=== PATIENT | male | born 1990 | race African-American/Black ===

== ENCOUNTER 2019-07-18 09:14 | Emergency (ER) | payer SELFPAY ==
[2019-07-18] MEDS ORDERED: IBUPROFEN 800 MG TABLET PO ONE (10:54)
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
--- NOTE | 2019-07-18 12:26 | RADIOLOGY REPORT (SQ) ---
EXAM DESCRIPTION: HAND LEFT 3 VIEWS COMPLETED DATE/TIME: 07/18/2019 12:16 pm REASON FOR STUDY: punched a wall pain swelling COMPARISON: None. EXAM PARAMETERS: NUMBER OF VIEWS: Three views. TECHNIQUE: AP, lateral and oblique radiographic images acquired of the left hand. LIMITATIONS: None. FINDINGS: MINERALIZATION: Normal. BONES: No acute fracture or dislocation. No worrisome bone lesions. JOINTS: No effusions. SOFT TISSUES: Dorsal hand soft tissue swelling. OTHER: No other significant finding. IMPRESSION: Dorsal hand soft tissue swelling. No acute osseous abnormality. TECHNICAL DOCUMENTATION: JOB ID: [id number] [employer]- All Rights Reserved Reading location - IP/workstation name: [email or web address]
[2019-07-18 12:42] VITALS: BP 133/81
== END 2019-07-18 12:42 | disposition home or self-care (01) ==
LOC: ER 09:14
DX: M79.642 Pain in left hand (principal); W22.09XA Striking against other stationary object, initial encounter
CPT/HCPCS: 99283

== ENCOUNTER 2019-12-23 14:28 | Emergency (ER) | payer SELFPAY ==
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
[2019-12-23] MEDS ORDERED: HYDROCODONE/ACETAMINOPHEN 5-325 MG TABLET PO ONE (14:55)
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
--- NOTE | 2019-12-23 15:20 | RADIOLOGY REPORT (SQ) ---
EXAM DESCRIPTION: CT HEAD WITHOUT IMAGES COMPLETED DATE/TIME: 12/23/2019 2:54 pm REASON FOR STUDY: head injury with loss of conciousness COMPARISON: None. TECHNIQUE: Axial images acquired through the brain without intravenous contrast. Images reviewed wi th bone, brain and subdural windows. Additional sagittal and coronal reconstructions were generated. Images stored on PACS. All CT scanners at this facility use dose modulation, iterative reconstruction, and/or weight based d osing when appropriate to reduce radiation dose to as low as reasonably achievable (ALARA). [facility]: Dose Right [facility]: CareDose [facility]: Dose Right [facility]: Teradose 4D [facility]: YOHO RADIATION DOSE: CT Rad equipment meets quality standard of care and radiation dose reduction techniq ues were employed. CTDIvol: 53.2 mGy. DLP: 1017 mGy-cm. LIMITATIONS: None. FINDINGS: Hemorrhagic contusion in the left paramedian frontal lobe (image 23 of series 2) that prieto ures 2.4 x 1.5 cm associated with effacement of the cerebral sulci and loss of the ramos-white matter differentiation. There is no extra-axial fluid collection, vascular territorial infarct, mass effect or midline shift. The caliber of the ventricles is concordant with the degree of sulcation. There is no effacement of the basal subarachnoid cisterns The orbits and globes are intact. The paranasal sinuses are clear. There is no calvarial fracture. IMPRESSION: Hemorrhagic contusion in the left paramedian frontal lobe (image 23 of series 2) that me asures 2.4 x 1.5 cm. EVIDENCE OF ACUTE STROKE: NO. COMMENT: This report was called to MARY BEDOYA NP at15:14 on 12/23/2019. Quality ID # [id number]: Final reports with documentation of one or more dose reduction techniques (e.g., Au tomated exposure control, adjustment of the mA and/or kV according to patient size, use of iterative reconstruction technique) TECHNICAL DOCUMENTATION: JOB ID: [id number] 2010 [employer]- All Rights Reserved Reading location - IP/workstation name: [email or web address]
[2019-12-23 16:50] VITALS: BP 126/82
== END 2019-12-23 16:47 | disposition home or self-care (01) ==
LOC: ER 14:28
DX: S06.2X9A Diffuse traumatic brain injury with loss of consciousness of unspecified duration, initial encounter (principal); Y04.2XXA Assault by strike against or bumped into by another person, initial encounter
CPT/HCPCS: 70450; 99284

== ENCOUNTER 2019-12-31 17:56 | Emergency (ER) | payer SELFPAY ==
[2019-12-31] MEDS ORDERED: RINGERS SOLUTION,LACTATED 1,000 ML IV ONE (18:50)
[2019-12-31] MEDS ORDERED: METOCLOPRAMIDE HCL INJ/PF 10 MG/2 ML SDV IV ONE (18:51)
[2019-12-31] MEDS ORDERED: KETOROLAC TROMETHAMINE INJ/PF 30 MG/1 ML SDV IV ONE (18:51)
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
--- NOTE | 2019-12-31 19:30 | RADIOLOGY REPORT (SQ) ---
EXAM DESCRIPTION: CT HEAD WITHOUT IMAGES COMPLETED DATE/TIME: 12/31/2019 7:16 pm REASON FOR STUDY: head trauma COMPARISON: 12/23/2019 TECHNIQUE: Axial images acquired through the brain without intravenous contrast. Images reviewed wi th bone, brain and subdural windows. Additional sagittal and coronal reconstructions were generated. Images stored on PACS. All CT scanners at this facility use dose modulation, iterative reconstruction, and/or weight based d osing when appropriate to reduce radiation dose to as low as reasonably achievable (ALARA). [facility]: Dose Right [facility]: CareDose [facility]: Dose Right [facility]: Teradose 4D [facility]: [employer] RADIATION DOSE: CT Rad equipment meets quality standard of care and radiation dose reduction techniq ues were employed. CTDIvol: 53.2 mGy. DLP: 1017 mGy-cm. mGy. LIMITATIONS: None. FINDINGS: VENTRICLES: Normal size and contour. CEREBRUM: The small left frontal contusion seen on the earlier study is isodense currently. There is no significant mass effect. There is no acute hemorrhage. Normal ramos/white matter differentiation. No areas of low density in the white matter. CEREBELLUM: No masses. No hemorrhage. No alteration of density. No evidence for acute infarction. EXTRAAXIAL SPACES: No fluid collections. No masses. ORBITS AND GLOBE: No intra- or extraconal masses. Normal contour of globe without masses. CALVARIUM: No fracture. PARANASAL SINUSES: No fluid or mucosal thickening. SOFT TISSUES: No mass or hematoma. OTHER: No other significant finding. IMPRESSION: This mild left frontal contusion reported on the earlier study is isodense. There is no significant mass effect. There is no new hemorrhage. EVIDENCE OF ACUTE STROKE: NO. COMMENT: Quality ID # [id number]: Final reports with documentation of one or more dose reduction techniques (e.g., Automated exposure control, adjustment of the mA and/or kV according to patient size, use of iterative reconstruction technique) TECHNICAL DOCUMENTATION: JOB ID: [id number] 2010 [employer]- All Rights Reserved Reading location - IP/workstation name: [email or web address]
[2020-01-01] MEDS ORDERED: SUMATRIPTAN SUCCINATE INJ/PF 6 MG/0.5 ML SDV SUBCUT ONE (01:47)
[2020-01-01] MEDS ORDERED: PROCHLORPERAZINE EDISYLATE INJ 10 MG/2 ML VIAL IV ONE (01:47)
[2020-01-01] MEDS: PROCHLORPERAZINE EDISYLATE INJ 10 MG/2 ML VIAL IM ONE ×2 (02:29→02:38)
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
[2020-01-01 04:14] VITALS: BP 127/77
== END 2020-01-01 04:14 | disposition home or self-care (01) ==
LOC: ER 17:56
DX: F07.81 Postconcussional syndrome (principal); R51 Headache; R11.0 Nausea; R42 Dizziness and giddiness
CPT/HCPCS: 99284; 96372; 96361; 96374; 70450; J2765; J3030; J7120; J0780